=== PATIENT | female | born 2000 | race Hispanic/Latino ===

== ENCOUNTER 2020-04-02 05:37 | Inpatient (IN) | payer OTHER ==
[~2020-04-02] VITALS: Ht 162.6 cm; Wt 72.8 kg
[2020-04-02] VITALS (8 sets, daily range): BP systolic 114–137; BP diastolic 64–86
[2020-04-02] MEDS ORDERED: LR 1,000 ML IV SCH (06:55)
[2020-04-02] MEDS ORDERED: PENICILLIN G POTASSIUM IV 5 MU in D5W MINI-BAG PLUS 100 ML IV STA (06:55)
[2020-04-02] MEDS ORDERED: LACTATED RINGER'S 1000 ML IV ONE (07:00)
[2020-04-02] MEDS ORDERED: OXYTOCIN 30 UNITS IN 0.9% NaCl 500ML IV BAG (J2590) As Ordered ONE (07:21)
[2020-04-02] MEDS ORDERED: OXYTOCIN INJ 10 UNITS/ML VIAL (J2590) IV STA (07:27)
[2020-04-02 07:31] LABS: HEMATOCRIT 36.7 % (36.0-47.0); HEMOGLOBIN 12.4 g/dl (12.0-15.5); MEAN CORPUSCULAR HEMOGLOBIN 30.2 pg (27.0-33.0); MEAN CORPUSCULAR HGB CONC 33.8 g/dl (32.0-36.5); MEAN CORPUSCULAR VOLUME 89.3 fl (80.0-96.0); PLATELET COUNT, AUTOMATED 311 10^3/uL (150-450); RED BLOOD COUNT 4.11 10^6/uL (4.00-5.40); WHITE BLOOD COUNT 16.1 10^3/uL (4.0-10.0)
[2020-04-02] MEDS ORDERED: OXYTOCIN INJ 10 UNITS/ML VIAL (J2590) IV ONE ×2 (07:45→08:15)
[2020-04-02 07:58] LABS: CORD GAS ABE V -3.9; CORD GAS HCO3 V 21.9 MEQ/L; CORD GAS O2 SAT V 84.8 %; CORD GAS PCO2 V 42.5 mmHg; CORD GAS PH V 7.33 UNITS; CORD GAS PO2 V 39.5 mmHg; CORD GAS TCO2 V 23.2 MEQ/L
[2020-04-02] MEDS ORDERED: OXYTOCIN DRIP 30 UNITS in IV 1 EA IV SCH (08:00)
[2020-04-02 08:01] LABS: CORD GAS ABE A -2.6; CORD GAS HCO3 A 23.5 MEQ/L; CORD GAS O2 SAT A 70.9 %; CORD GAS PCO2 A 45.8 mmHg; CORD GAS PH A 7.328 UNITS; CORD GAS PO2 A 29.2 mmHg; CORD GAS SBC A 21.7 MEQ/L; CORD GAS TCO2 A 24.9 MEQ/L
--- NOTE | 2020-04-02 08:07 | HPEPDOC ---
Obstetrical History & Physical General Date of Admission Apr 02, 2020 at 06:51 Primary Care Physician: Antony Alfaro MD History of Present Illness 37.6 WEEKS SEEN IN TRIAGE STARTED CONTRACTIONS AT 0200 HOURS AFTER INTERCOURSE. NO VAGINAL BLEEDING NO RUPTURED MEMBRANES . Chief Complaint: Contractions, term, Active Labor, Group B Positive Age: 19 : 1 Term: 1 Pre-term: 0 Abortions: 0 Livin Care Care: Good Care Dating Final EDC: Apr 17, 2020 Final EDC for Daily Update: Apr 17, 2020 Final EDC by: LMP LMP: Jul 12, 2019 1st Trimester Date: August 25, 2019 Weeks + Days: 7.2 Estimated Date of Confinement: Apr 17, 2020 EGA at Admission: 37.6 Antepartum Course Diagnos(e)s ACTIVE LABOR AT TERM Height (inches): 64 Pre- weight (lbs.): 131.4 Admission Weight (lbs.): 156.4 Change in Weight (lbs.): 25 Past Medical History Past Obstetrical History : Past Obstetrical History: [employer] History: History of STD Past Medical History Surgical History: Denies/None Family History Significant Family History: No pertinent family hx Social History Marital Status: Family situation: Spouse/partner home Psychosocial History: No pertinent psych hx * Smoker: non-smoker Alcohol: Denies Drugs: denies Abuse Violence Screening Have you been hit/kicked/slapp: No Have you been sexually assault: No Imunizations Tdap status: current Influenza Status: current Allergies Coded Allergies: No Known Drug Allergies (Verified Allergy, Unknown, 04/02/20) Physical Examination Physical Examination GENERAL: Alert and oriented times three. BREAST: . ABDOMEN: Gravid and non-tender to touch. FETUS: Is vertex (VTX) by sterile vaginal examination (SVE), fetus is vertex (VTX) by Juan. HEART RATE: Regular rate and rhythm. LUNGS: Clear to auscultation (CTA). EXTREMITIES: No edema. No clonus. Deep tendon reflexes (DTRs) NORMAL Vital Signs/I&O Vital Signs Date Time Temp Pulse Resp B/P (MAP) Pulse Ox O2 Delivery O2 Flow Rate FiO2 04/02/20 06:05 97.6 80 125/78 (94) Laboratory Data 24H LABS Laboratory Tests 2 04/02/20 06:55: Nucleated Red Blood Cells % (auto) 0.0 04/02/20 07:04: Serology Scanned Report Hepatitis B Testing CBC/BMP Laboratory Tests 04/02/20 06:55 Urine Culture: Contaminated Pertinent Laboratoy Data Blood Type: A+ RBC Antibody Screen: Negative HIV: Negative Hepatitis B: Negative Rapid Plasma Reagin: Nonreactive Rubella: Immune Varicella: Immune Chlamydia/Gonorrhea: Positive Group B Streptococcus: Positive Cystic Fibrosis: Negative Glucose Tolerance Test: 75 Anatomy Ultrasound Placenta Location: Anterior Normal Anatomy: Yes Placenta Previa: No Steroid Therapy Steroid Therapy: No Vaginal Examination Dilation: 9 cm Effacement: 90% Station: -3 Cervical Consistency: Soft Cervical Position: Anterior Presentation: Cephalic presentation Position: Vertex (occiput) Assessment Variability: Moderate Accelerations: Positive Decelerations: None Tocometer Contractions: Yes Frequency: every 1-3 min. Duration: less than 60 seconds Strength: palpated as strong Multi-drug resistant Organism: No history of MDRO Assessment/Plan Assessment 19 -year-old (G)1 para (P 0 at 37.6 weekS Presents to Labor and Delivery (L&D) . Plan Admit and orient. 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 Diet: NPO Group B Streptococcus (GBS) POSITIVE Labs and intravenous (IV) per unit protocol. Counseled on EPIDURAL AND IMMINENT DELIVERY Lactated Ringers (LR): Bolus 1000mL, then at 125 mL/hr. Anticipate [normal spontaneous delivery ()]. C-S as appropriate. REVIEWED LABOR AND DELIVERY RE HEMORRHAGE INFECTION PERFORATION LACERATIONS OF VAGINA RECTUM URETHRA, UTERINE ATONY POSSIBLE BLOOD TRANSFUSION IF HEMORRHAGE LIFE THREATENING REMOTE HYSTERECTOMY, POSSIBLE NICU ADMISSION EXPRESSED UNDERSTANDING SAFE TO PROCEED Labor and Delivery Counseling REVIEWED IMMENENT DELIVERY NOT A CANDIDATE FOR EPIDURAL EXPRESSED UNDERSTANDING Antony Alfaro MD Apr 02, 2020 08:03
--- NOTE | 2020-04-02 08:13 | DNPDOC ---
[facility] Delivery Note Delivery Note DATE OF DELIVERY: 04/02/2020 PREDELIVERY DIAGNOSIS: 37.6 weeks' gestation and labor. POST DELIVERY DIAGNOSIS: Delivered. PROCEDURE: [Spontaneous vaginal delivery PRECIPITOUS CONTACT ACID PLANT OPERATOR: Dr. Charlene JENKINS ANESTHESIA: NONE ESTIMATED BLOOD LOSS: 200 mL. FINDINGS: 6 pound 3 ounce FEMALE infant, Score 8/9 ABRUPTIO PLACENTA 25 % DELIVERY SUMMARY: Patient is a 19year-old 1 now para 1 who was admitted to labor and delivery HAD SROM CLEAR LIQUOR PRECIPITATE DELIVERY INTACT PERINEUM LIVE FEMALE IN GOOD CONDITION UTERUS CONTRACTED WELL WITH PITOC IN. ANTERIOR POSTERIOR LATERAL YATES INTACT Antony Jenkins MD Apr 02, 2020 08:12
[2020-04-02] MEDS ORDERED: OXYTOCIN DRIP 30 UNITS in IV 1 EA IV ONE (08:15)
[2020-04-02] MEDS ORDERED: MOM 30ML SUSPENSION UDC PO PRN (08:15)
[2020-04-02] MEDS ORDERED: MEASLES,MUMPS,RUBELLA VACCINE INJ (MMR-II) (90707) SC SCH (08:15)
[2020-04-02] MEDS ORDERED: ACETAMINOPHEN TAB 650MG DOSE (2X325MG) PO PRN (08:15)
[2020-04-02] MEDS ORDERED: DOCUSATE SODIUM 100MG CAPSULE PO PRN (08:15)
[2020-04-02] MEDS ORDERED: ANUSOL HC CREAM 30GM TOP PRN (08:15)
[2020-04-02] MEDS ORDERED: ACETAMINOPHEN 500 MG TAB PO PRN (08:15)
[2020-04-02] MEDS ORDERED: RHOGAM 300 MCG (1500 IU) INJ (J2790) IM SCH (08:15)
[2020-04-02] MEDS ORDERED: IBUPROFEN 800 MG TAB PO PRN (08:15)
[2020-04-02] MEDS ORDERED: METHYLERGONOVINE MALEATE 0.2 MG TAB PO PRN (08:15)
[2020-04-02] MEDS ORDERED: BENZOCAINE 20% HEMORRHOIDAL OINTMENT 28GM TUBE TOP PRN (08:15)
[2020-04-02] MEDS ORDERED: PRENTAB9 PO (08:24)
[2020-04-02] MEDS: PRENATAL VITAMINS CHEWABLE TABLET PO SCH (09:00)
[2020-04-02] MEDS ORDERED: PENICILLIN G POTASSIUM IV 2.5 MU in IV 1 EA IV SCH (11:00)
[2020-04-03 06:04] VITALS: BP 104/59
[2020-04-03 06:42] LABS: HEMATOCRIT 33.4 % (36.0-47.0); HEMOGLOBIN 11.3 g/dl (12.0-15.5); MEAN CORPUSCULAR HEMOGLOBIN 31.3 pg (27.0-33.0); MEAN CORPUSCULAR HGB CONC 33.8 g/dl (32.0-36.5); MEAN CORPUSCULAR VOLUME 92.5 fl (80.0-96.0); PLATELET COUNT, AUTOMATED 256 10^3/uL (150-450); RED BLOOD COUNT 3.61 10^6/uL (4.00-5.40); WHITE BLOOD COUNT 13.9 10^3/uL (4.0-10.0)
--- NOTE | 2020-04-03 07:09 | IPNPDOC ---
Progress Note Date of Service: Apr 03, 2020 Progress Note Lindsay is a 19 yo G1 now P1 who underwent an uncomplicated yesterday morning after presenting in active labor. Overnight there were no acute events. Ms. Stein reports feeling well this morning. She is ambulating, voiding, tolerating a regular diet, and denies any n/v. Her lochia is minimal. Vitals - VSS, afebrile, normotensive, non tachycardic General - AAOX3, sitting up in bed, NAD Abdomen - Fundus firm at U-2. No fundal tenderness Extremities - No edema Lindsay is doing well and is making an appropriate recovery. If she meets all criteria she will a candidate for discharge home tomorrow. DO Winston VS, I&O, 24H, [place] Vital Signs/I&O Vital Signs Date Time Temp Pulse Resp B/P (MAP) Pulse Ox O2 Delivery O2 Flow Rate FiO2 04/03/20 06:04 99.0 82 18 104/59 (74) 98 Room Air I&O- Last 24 Hours up to 6 AM 04/03/20 06:00 Intake Total 1000 ml Output Total 600 ml Balance 400 ml Laboratory Data 24H LABS Laboratory Tests 2 04/02/20 07:50: Cord Arterial Blood pH 7.328, Cord Arterial Blood PCO2 45.8, Cord Arterial Blood PO2 29.2, Cord Arterial Blood HCO3 23.5, Cord Arterial Blood Total CO2 24.9, Cord Arterial Blood Base Excess -2.6, Cord Arterial Base Excess (Standard 21.7, Cord Arterial Bld Oxygen Saturation 70.9, Cord Venous Blood pH 7.330, Cord Venous Blood PCO2 42.5, Cord Venous Blood PO2 39.5, Cord Venous Blood HCO3 21.9, Cord Venous Blood Total CO2 23.2, Cord Venous Base Excess (Actual) -3.9, Cord Venous Base Excess (Standard) 21.0, Cord Venous Blood Oxygen Saturation 84.8 04/03/20 06:30: Nucleated Red Blood Cells % (auto) 0.0 CBC/BMP Laboratory Tests 04/03/20 06:30 ESTELITA VORA DO Apr 03, 2020 07:09
[2020-04-03] MEDS: PRENATAL VITAMINS CHEWABLE TABLET PO SCH (08:15)
[2020-04-03] MEDS ORDERED: INFLUENZA QUADRIVALENT PF VACCINE 0.5ML SYRINGE IM ONE (09:00)
[2020-04-03 18:00] VITALS: BP 127/73
[2020-04-03] MEDS: IBUPROFEN 600MG TAB PO PRN (20:00)
[2020-04-04 05:34] VITALS: BP 128/73
--- NOTE | 2020-04-04 07:12 | IPNPDOC ---
Progress Note Date of Service: Apr 04, 2020 Day#: 2 Progress Note SUBJECT: Lindsay is a 19 yo G1 now P1 who underwent an uncomplicated todays ago after presenting in active labor. Overnight there were no acute events. Ms. Stein reports feeling well this morning. She is ambulating, voiding, tolerating a regular diet, and denies any n/v. Her lochia is minimal. Vitals - VSS, afebrile, normotensive, non tachycardic General - AAOX3, sitting up in bed, NAD Abdomen - Fundus firm at U-2. No fundal tenderness Extremities - No edema ASSESSMENT:Lindsay is a 19 yo G1 now P1 who underwent an uncomplicated todays ago after presenting in active labor. doing well on day 2 . Vitals within normal limits, afebrile, hemodynamically stable with no evidence of infection. PLAN: 1. Discharge to home today. 2. Tylenol and Motrin for pain. 3. Encourage breast feeding and ambulation. 4. nexplanon for contraception 5. Routine PP visit in 6 weeks in clinic. 6. Discussed return precautions at length. VS, I&O, 24H, Fishbone Vital Signs/I&O Vital Signs Date Time Temp Pulse Resp B/P (MAP) Pulse Ox O2 Delivery O2 Flow Rate FiO2 04/04/20 05:34 98.1 68 17 128/73 (91) 98 Room Air I&O- Last 24 Hours up to 6 AM 04/04/20 06:00 Intake Total 840 ml Balance 840 ml DO BEJARANO MD Apr 04, 2020 07:12
[2020-04-04] MEDS ORDERED: IBUP80TA PO (07:15)
[2020-04-04] MEDS ORDERED: DOK1CAP7 PO (07:15)
[2020-04-04] MEDS ORDERED: ACET-683 PO (07:15)
[2020-04-04] MEDS: PRENATAL VITAMINS CHEWABLE TABLET PO SCH (08:20)
[2020-04-04] MEDS: IBUPROFEN 600MG TAB PO PRN (17:06)
[2020-04-04 18:11] VITALS: BP 134/83
== END 2020-04-04 17:30 | disposition home or self-care (01) | DRG 807 ==
LOC: M LDO 05:37 → M LDI 06:51 → M OBS 10:02
PROVIDERS: ADMIT Obstetrics & Gynecology; ATTEND Obstetrics & Gynecology
PROC: 10E0XZZ Delivery of Products of Conception, External Approach (ICD-10-PCS; principal; 2020-04-02)
DX: O99.824 Streptococcus B carrier state complicating childbirth (principal); Z37.0 Single live birth; Z3A.37 37 weeks gestation of pregnancy; O62.3 Precipitate labor; O45.93 Premature separation of placenta, unspecified, third trimester

== ENCOUNTER 2020-05-08 15:18 | Emergency (ER) | payer OTHER ==
[~2020-05-08] VITALS: Ht 167.6 cm; Wt 63.0 kg
[~2020-05-08 15:18] MED LIST: ACET-683 PO; DOK1CAP7 PO; IBUP80TA PO; PRENTAB9 PO
[2020-05-08 16:27] LABS: BASO % 0.5 % (0.0-1.0); EOS # 0.7 10^3/uL (0.0-0.5); EOS % 8.6 % (0.0-3.0); HEMOGLOBIN 12.1 g/dl (12.0-15.5); LYMPH # 2.7 10^3/uL (1.5-5.0); LYMPH % 33.2 % (24.0-44.0); MEAN CORPUSCULAR HEMOGLOBIN 30.3 pg (27.0-33.0); MEAN CORPUSCULAR HGB CONC 33.6 g/dl (32.0-36.5); MEAN CORPUSCULAR VOLUME 90.2 fl (80.0-96.0); MONO # 0.8 10^3/uL (0.0-0.8); MONO % 10.5 % (0.0-5.0); NEUTROPHILS # 3.8 10^3/uL (1.5-8.5); PLATELET COUNT, AUTOMATED 309 10^3/uL (150-450); RED BLOOD COUNT 3.99 10^6/uL (4.00-5.40)
[2020-05-08 16:42] LABS: ALBUMIN 3.4 GM/DL (3.2-5.2); ALT/SGPT 26 U/L (12-78); BILIRUBIN,TOTAL 0.3 MG/DL (0.2-1.0); BLOOD UREA NITROGEN 14 MG/DL (7-18); CALCIUM LEVEL 8.5 MG/DL (8.5-10.1); CARBON DIOXIDE LEVEL 30 MEQ/L (21-32); CHLORIDE LEVEL 108 MEQ/L (98-107); CREATININE FOR GFR 0.66 MG/DL (0.55-1.30); GLUCOSE, FASTING 86 MG/DL (70-100); POTASSIUM SERUM 4.3 MEQ/L (3.5-5.1); SODIUM LEVEL 140 MEQ/L (136-145); TOTAL PROTEIN 6.4 GM/DL (6.4-8.2)
--- NOTE | 2020-05-08 16:56 | REP ---
INDICATION: heavy bleeding COMPARISON: None. TECHNIQUE: Transabdominal pelvic ultrasound followed by transvaginal examination for better evaluation of the endometrium and adnexa with color Doppler evaluation of the ovaries. FINDINGS: Bladder is relatively collapsed. Normal heterogeneous anteverted retroflexed uterus measures 7.2 x 4.8 x 6.0 cm. The endometrial complex measures 12 mm thickness with a 9 x 7 x 6 mm echogenic focus demonstrating posterior shadowing suggesting possible partially calcified polyp. Bilateral ovaries are normal in appearance and vascularity without evidence for torsion. Bilateral follicles noted. Right ovary measures 2.5 x 1.6 x 1.9 cm; R I = 0.59. Left ovary measures 2.1 x 1.6 x 1.8 cm; R I = 0.50. Small amount of free fluid nonspecific. No adnexal mass lesion. IMPRESSION: Mildly thickened endometrium with 9 mm endometrial echogenic structure including posterior shadowing is nonspecific. Differential diagnosis would include partially calcified structure, polyp, and less likely shadowing related to gas. <Electronically signed by Levy Nguyen > 05/08/20 [id number]
[2020-05-08] MEDS ORDERED: METH0.2T53 PO (17:41)
[2020-05-08] MEDS ORDERED: METHYLERGONOVINE MALEATE 0.2 MG/ML VIAL (J2210) IM ONE (17:45)
[2020-05-08 18:26] VITALS: BP 118/63
--- NOTE | 2020-05-09 10:49 | ED PDOC ---
Post-Departure Follow-Up dr ortez and claritza frank faxed formal report of pelvic us for fu Ines Gómez MD May 09, 2020 10:49
== END 2020-05-08 18:26 | disposition home or self-care (01) ==
LOC: M ED 15:18
DX: O72.1 Other immediate postpartum hemorrhage (principal)
CPT/HCPCS: 76830; 76856; 80053; 85025; 96372; 99283; J2210

== ENCOUNTER → 2020-05-16 | Outpatient (CLI) | payer SELFPAY ==
[~2020-05-16] MED LIST changes: +METH0.2T53 PO
== END ==
LOC: M LABSMTC 13:51
PROVIDERS: ATTEND Pediatrics
DX: Z20.822 Contact with and (suspected) exposure to COVID-19 (principal)